=== PATIENT | female | born 1985 | race Caucasian/White ===

== ENCOUNTER 2019-09-02 10:10 | Outpatient (CLI) | payer MEDICAID, SELFPAY ==
[2019-09-02 10:36] VITALS: BMI 29.9
[2019-09-02] MEDS: Lactated Ringers 1,000 ML 125 ML IV (10:50)
[2019-09-02 10:59] VITALS: BP 104/66; PULSE 88
[2019-09-02 11:08] VITALS: TEMP 37.2
--- NOTE | 2019-09-02 11:48 | OB.TRI.NOTE ---
History of Present Illness Date of Service: 09/02/19 Was patient seen by the physician?: Yes Reason For Visit: VERSION Date of Service: 09/02/19 History of Present Illness: @ 37.4 weeks, Breech. requesting ECV trial. pt was counseled on risks of ECV including pain, placental abruption, intolerance and need for emergency C/S. pt agreed to proceed. Allergies No Known Allergies Allergy (Verified 09/02/19 11:10) Physical Exam Vitals: Vital Signs Temp Pulse BP 99.0 F 88 104/66 09/02/19 11:08 09/02/19 10:59 09/02/19 10:59 NST - FHR Rate Baby A Baseline: 135 Variability:: Moderate Accelerations:: 15 x 15 Decelerations:: None NST Reactive:: Yes FHR Category:: Category I Uterine Activity:: irregular Impression/Plan 33yo @ 37.4 wks, BREECH ECV today bedside ultrasound breech, head maternal Right
--- NOTE | 2019-09-02 11:52 | PCM.OPRPT ---
Report of Operation Date of Procedure: 09/02/19 Pre-Operative Diagnosis: term gestation, breech Post-Operative Diagnosis: same Surgery/Procedure Performed:: ECV Description of Surgical Findings:: Bedside ultrasound performed head maternal right JEFFREY appears within normal limits. At this time a forward flip was performed and we were able to successfully rotate the baby to a vertex position. heart tones were checked and initially at 80 bpm patient was positioned on the left lateral side and then to hands and knees with recovery into the 120s to 130s. We will keep her on the heart rate monitor for at least 1 hour to ensure reactive NST. Patient was counseled on the signs and symptoms of placental abruption, labor. She is to return if any vaginal bleeding, abdominal pain, painful regular contractions, leaking fluid decreased movement. Patient verbalized understanding automotive quality manager: Meghan Steward Description of Procedure: Bedside ultrasound performed head maternal right JEFFREY appears within normal limits. At this time a forward flip was performed and we were able to successfully rotate the baby to a vertex position. heart tones were checked and initially at 80 bpm patient was positioned on the left lateral side and then to hands and knees with recovery into the 120s to 130s. We will keep her on the heart rate monitor for at least 1 hour to ensure reactive NST. Patient was counseled on the signs and symptoms of placental abruption, labor. She is to return if any vaginal bleeding, abdominal pain, painful regular contractions, leaking fluid decreased movement. Patient verbalized understanding
[2019-09-02 12:15] LABS: Absolute Lymphocyte Count 1.63 X10^3/uL (0.83-4.51); Absolute Neutrophil Count 4.8 X10^3/uL (2.0-7.7); Basophil# 0.03 X10^3/uL; Basophil% 0.4 % (0-1); Eosinophil# 0.03 X10^3/uL; Eosinophils% 0.4 % (0-5); Hematocrit 36.3 % (37-47); Hemoglobin 12.1 g/dL (12.0-15.0); Lymphocyte # 1.63 X10^3/ul (4.0); Lymphocyte % 22.4 % (19-41); Mean Corp Hgb Conc 33.3 g/dL (32-36); Mean Corpuscular Hgb 30.3 pg (27.0-32.0); Mean Corpuscular Volume 90.8 fL (81-99); Mean Platelet Vol. 12.1 fl (6.2-12.0); Monocyte# 0.73 X10^3/uL; NRBC Flagged by Analyzer 0 % (0-5); Neutrophil # 4.82 X10^3/uL (2.7-7.7); Neutrophil % 66.3 % (47-70); Platelet Count 141 K/mm3 (150-450); RBC Distribution Width CV 13.3 % (11.6-14.6); RBC Distribution Width SD 44.1 fl (35.1-43.9); White Blood Count 7.3 K/mm3 (4.4-11.0)
== END 2019-09-02 12:45 | disposition home or self-care (01) ==
LOC: WPOUT 10:11 → WP 10:11
PROVIDERS: Referring Provider Obstetrics & Gynecology; Visit Provider Obstetrics & Gynecology
DX: O32.1XX0 Maternal care for breech presentation, not applicable or unspecified (principal); Z3A.37 37 weeks gestation of pregnancy
CPT/HCPCS: 96360; 96361; 36415; 59025; 59050; 59412; 76815; 85025; 86850; 86900; 86901; 99218; J7120; G0378

== ENCOUNTER 2019-09-16 06:45 | Inpatient (IN) | payer MEDICAID, SELFPAY ==
[2019-09-16] VITALS (20 sets, daily range): BP systolic 107–133; BP diastolic 58–84; PULSE 75–92; RESP 14–16; TEMP 36.7–37.4; BMI 30.2
[2019-09-16] MEDS: Lactated Ringers 1,000 ML 50 ML IV (07:00)
[2019-09-16 07:13] LABS: Basophil# 0.02 X10^3/uL; Basophil% 0.2 % (0-1); Eosinophil# 0.02 X10^3/uL; Eosinophils% 0.2 % (0-5); Hematocrit 40.8 % (37-47); Hemoglobin 13.6 g/dL (12.0-15.0); Lymphocyte % 18.5 % (19-41); Mean Corp Hgb Conc 33.3 g/dL (32-36); Mean Corpuscular Hgb 30.6 pg (27.0-32.0); Mean Corpuscular Volume 91.7 fL (81-99); Mean Platelet Vol. 12.3 fl (6.2-12.0); Monocyte# 0.81 X10^3/uL; Monocyte% 8.3 % (0-10); NRBC Flagged by Analyzer 0 % (0-5); Neutrophil # 7.02 X10^3/uL (2.7-7.7); Neutrophil % 72.3 % (47-70); Platelet Count 136 K/mm3 (150-450); RBC Distribution Width CV 13.1 % (11.6-14.6); RBC Distribution Width SD 43.8 fl (35.1-43.9); Red Blood Count 4.45 M/mm3 (4.2-5.4); White Blood Count 9.7 K/mm3 (4.4-11.0)
--- NOTE | 2019-09-16 07:16 | HP.PCM_ITS ---
- Problem List (1) Active labor at term Status: Acute (2) History of spontaneous Status: Acute (3) Rh negative state in antepartum period Status: Acute History Date of Admission: 09/16/19 Final VENICE: 09/19/19 Final VENICE Source: LMP Gestational age: 39 Weeks and 4 Days History of this : This is a 33 year-old, G [5], P [2021], at 39 weeks 4 days gestational age by dating US in first trimester. Presented to labor and delivery in active labor with contractions every 2-3 minutes that were on and off since yesterday and became more regular around 3 am this morning. Denies vaginal bleeding, leakage of fluid. Good movement. present upon arrival. complicated by breech presentation at 37 weeks with successful ECV, history of spontaneous , and Influenza B positive during . Denies any SOB, nausea, vomiting, cough or recent travel outside the [facility]. No contacts with any positive COVID 19 persons. Allergies No Known Allergies Allergy (Verified 09/16/19 06:55) Home Medications: Home Medications Ascorbic Acid [Vitamin C] 1 tab PO DAILY 09/02/19 Cholecalciferol (VIT D3) [Vitamin D] 1,000 unit PO DAILY 09/02/19 Lactobacillus Acidophilus [Acidophilus Lactobacilli] 1 cap PO DAILY 09/02/19 [place]-3 Fatty Acids/Fish Oil [Fish Oil 1,000 mg Capsule] 1 ea PO DAILY 09/02/19 Vits [Prenatabs FA ] 1 tab PO DAILY 09/02/19 Smoking Status: Never smoker Alcohol: None Number of Fetus(es): 1 NST - FHR Rate Baby A Baseline: 125 Variability:: Moderate Accelerations:: 15 x 15 Decelerations:: None NST Reactive:: Yes FHR Category:: Category I Uterine Activity:: Every 2-3 min strong History Past Pregnancies: Past Pregnancies Delivery Date Name GA/ Weeks Outcome Route Wt Sex Labor Length Anesthesia Delivery Location Provider FOB Labs: Mom's Problem List Problem Status Onset Code Active labor at term Acute History of spontaneous Acute Z87.59 Rh negative state in antepartum period Acute O26.899, Z67.91 Mom's Labs & Results 09/16/19 09/16/19 06:50 06:50 WBC 9.7 RBC 4.45 Hgb 13.6 Hct 40.8 MCV 91.7 MCH 30.6 MCHC 33.3 RDW Std Deviation 43.8 RDW Coeff of Bret 13.1 Plt Count 136 L MPV 12.3 H Immature Gran % (Auto) 0.500 Neut % (Auto) 72.3 H Lymph % (Auto) 18.5 L Hinds % (Auto) 8.3 Eos % (Auto) 0.2 Baso % (Auto) 0.2 Absolute Neuts (auto) 7.0 Absolute Lymphs (auto) 1.80 Nucleated RBC % 0 Blood Type Pending Antibody Screen Pending HIV negative HBsAG negative RPR negative Rubella Immune O negative, A negative and card on file, decline rhogam administration GBS positive 1hr GCT normal GC/CT negative Expected Infant Delivery Method: Spontaneous Vaginal Review of Systems Constitutional: Denies: Chills, Fever, Weight Change Eyes: Denies: Blurred vision HEENT: Denies: Head Aches, Sinus Congestion, Sinus Drainage Cardiovascular: Denies: Chest Pain, Palpitations Respiratory: Denies: Cough, Shortness of breath at rest, Sputum production Gastrointestinal: Denies: Abdominal Pain, Nausea, Vomiting Genitourinary: Denies: Dysuria Neurological: Denies: Numbness, Tingling, Focal weakness Psychiatric: Denies: Anxiety, Depression, Homicidal Ideations, Suicidal Ideations Physical Exam General: Alert, Oriented x3 HEENT: Atraumatic, Normocephalic Abdomen: Gravid Extremities:: No edema 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 Patient tolerated. Station: -1 Effacement (%): 90 Assessment/Plan All Active Problems Active labor at term (Acute) History of spontaneous (Acute) Rh negative state in antepartum period (Acute) This is a 33 year-old, G [5], P [2021], at 39 weeks 4 days gestational age. Active Labor at Term GBS positive Category 1 FHT P: 1) Admit to labor and delivery. IV saline lock. EFM. Routine labs 2) Planning unmedicated , may have pain management upon request. Continuous bedside support offered. 3) PCN prophylaxis for GBS positive 4) Declines LARC, form signed in chart 5) Anticipate vaginal delivery soon 6) Collaborative physician and notified of patient in labor.
--- NOTE | 2019-09-16 08:18 | OP.PCM_ITS ---
Problem List (1) Active labor at term Status: Acute (2) History of spontaneous Status: Acute (3) Rh negative state in antepartum period Status: Acute (4) Vaginal delivery Status: Acute (5) Positive GBS test Status: Acute Vaginal Delivery Maternal Presentation: Active Labor Amniotic Membrane Rupture Type: Artificial - Moderate amount of clear fluid Amniotic Fluid Description: Clear Final VENICE: 09/19/19 Final VENICE Source: US <20 weeks Gestational age: 39 Weeks and 4 Days Date of Procedure: 09/16/19 Pre-Operative Diagnosis: Active Labor Post-Operative Diagnosis: Surgery/ Procedure Performed: Spontaneous Vaginal Delivery Type of Anesthesia: None Description of Procedure: Progressed to complete with urge to push on hands and knees. Infant head delivered and patients pushing efforts decreased. After 30 seconds, turned supine and with good pushing effort body delivered. CANx1 delivered through. placed on maternal abdomen, strong cry. APGARS 8,9. Mouth and nares suctioned for secretions. Patient declined pitocin for active 3rd stage management after reviewing risks and benefits of administration, requested expectant management. After 5 minutes and pulsations ceased per patient request, cord clamped and cut by FOB. Placenta delivered intact, 3 vessel cord with maternal effort. Fundus firm. Perineum inspected and intact without laceration. Vaginal sweep and sponge and instrument count correct completed by me. Hemo stasis achieved. initiated. Family bonding well. Mom and baby stable. notified of delivery. Presentation: Vertex Placental Delivery Description: Spontaneous Placenta Disposition: [facility] Cord Vessel Description: 3 Vessels Cord Entanglement: Around neck x 1, loose Estimated Blood Loss: 200 ml Infant A gender: Male (1 minute): 8 (5 minute): 9 Episiotomy Description: None Laceration: None Complications: None
[2019-09-16] MEDS: Ibuprofen 600 MG Tablet PO (18:50)
[2019-09-17] VITALS (7 sets, daily range): BP systolic 103–122; BP diastolic 58–75; PULSE 64–88; RESP 16–18; TEMP 36.7–37.1; O2SAT 96–97
--- NOTE | 2019-09-17 18:14 | PCM.PN.OB ---
Patient Problems: Active and Suspected Problems Active labor at term (Acute) History of spontaneous (Acute) Rh negative state in antepartum period (Acute) Vaginal delivery (Acute) Positive GBS test (Acute) Subjective: No complaints - Physical Exam Vitals/I&O's: Vital Signs Temp Pulse Resp BP Pulse Ox 98.8 F 85 16 103/58 L 97 09/17/19 14:20 09/17/19 14:20 09/17/19 14:20 09/17/19 14:20 09/17/19 14:20 Oxygen Delivery Method Room Air Weight: 187 lb Body Mass Index (BMI) 30.2 Intake and Output for Last 24 Hours 09/15/19 09/16/19 09/17/19 23:59 23:59 23:59 Intake Total 259.17 / 259.17 Output Total 450 / 450 Balance -190.83 / -190.83 General: Alert, Oriented x3 Abdomen: Soft, Non Tender, Non-Distended - ff mid & below umb Extremities: No Calf Tenderness Current Medications Acetaminophen (Tylenol) 1,000 mg PO Q8H PRN PRN PRN Reason: Pain Score 1-3/10 Bisacodyl (Dulcolax) 10 mg RECTAL UD PRN PRN Reason: If no BM Dibucaine (Dibucaine) 1 applic TOPICAL TID PRN PRN; Protocol PRN Reason: Discomfort Hydrocortisone (Hytone) 1 applic TOPICAL TID PRN PRN; Protocol PRN Reason: Discomfort Ibuprofen (Motrin) 600 mg PO Q6H PRN PRN PRN Reason: Pain Score 1-3/10 Last Admin: 09/16/19 18:50 Dose: 600 mg Documented by: Methylergonovine Maleate (Methergine) 0.2 mg IM X1 PRN PRN Reason: Excess bleeding/uterine atony Ondansetron HCl (Zofran) 4 mg IV Q4H PRN PRN PRN Reason: Nausea Senna/Docusate Sodium (Senokot-S, [place]-Colace) 1 - 2 tablet PO DAILY PRN PRN PRN Reason: Constipation Simethicone (Mylicon) 80 mg PO PCHS PRN PRN Reason: Indigestion/Stomach pain Sodium Chloride () 5 - 15 ml IV UD PRN PRN Reason: SALINE FLUSH Medical Necessity - Tobacco Use Smoking Status: Never smoker Assessment/Plan All Active Problems Active labor at term (Acute) History of spontaneous (Acute) Rh negative state in antepartum period (Acute) Vaginal delivery (Acute) Positive GBS test (Acute) PPD#1 D/c home tonight per patient request
--- NOTE | 2019-09-17 18:15 | DCINST_ITS ---
Discharge Diet: No Restrictions Discharge Activity: May Drive, May Shower May resume sexual activity in: 6 weeks Additional Instructions: If you experience any of the following, contact your healthcare provider. * Bleeding that soaks a pad every hour for 2 hours * Fever 100.4 or higher * Unrelieved incision or abdominal pain * Swelling, redness, discharge or bleeding from your incision or episiotomy site * Your incision begins to separate * Problems urinating (including inability to urinate or burning while urinating). * Visual changes * Severe headache * Flu-like symptoms * Pain or redness in one of both of your breasts * Pain, warmth, tenderness or swelling in your legs, especially the calf area * Frequent nausea and vomiting * Symptoms of depression or anxiety If you experience any of the following, call 911 or go to the nearest Emergency Room. * Chest pain * Problems breathing * Seizure activity * Partial or complete paralysis of a body part, slurred speech, weakness or drooping of the face, or a sudden inability to walk or hold your balance Allergies/Adverse Reactions: Allergies No Known Allergies Allergy (Verified 09/16/19 06:55) Medications to take at Discharge Ascorbic Acid [Vitamin C] 1 tab PO DAILY 09/02/19 Cholecalciferol (VIT D3) [Vitamin D3] 1,000 unit PO DAILY 09/02/19 Lactobacillus Acidophilus [Acidophilus Lactobacilli] 1 cap PO DAILY 09/02/19 [place]-3 Fatty Acids/Fish Oil [Fish Oil 1,000 mg Capsule] 1 ea PO DAILY 09/02/19 Vits [Prenatabs FA ] 1 tab PO DAILY 09/02/19 Acetaminophen [Tylenol] 1,000 mg PO Q8H PRN PRN tablet 09/17/19 Ibuprofen [Motrin] 600 mg PO Q6H PRN PRN tablet 09/17/19 Primary Care Physician: Care Physician,No Primary [Primary Care Provider] - Test Results: Test results from this visit will be discussed in further detail at your follow- up appointment, if applicable.
--- NOTE | 2019-09-17 18:15 | PCM.DCVAG ---
Discharge Diet: No Restrictions Discharge Activity: May Drive, May Shower May resume sexual activity in: 6 weeks Additional Instructions: If you experience any of the following, contact your healthcare provider. Bleeding that soaks a pad every hour for 2 hours Fever 100.4 or higher Unrelieved incision or abdominal pain Swelling, redness, discharge or bleeding from your incision or episiotomy site Your incision begins to separate Problems urinating (including inability to urinate or burning while urinating). Visual changes Severe headache Flu-like symptoms Pain or redness in one of both of your breasts Pain, warmth, tenderness or swelling in your legs, especially the calf area Frequent nausea and vomiting Symptoms of depression or anxiety If you experience any of the following, call 911 or go to the nearest Emergency Room. Chest pain Problems breathing Seizure activity Partial or complete paralysis of a body part, slurred speech, weakness or drooping of the face, or a sudden inability to walk or hold your balance Allergies/Adverse Reactions: Allergies No Known Allergies Allergy (Verified 09/16/19 06:55) Medications to take at Discharge Ascorbic Acid [Vitamin C] 1 tab PO DAILY 09/02/19 Cholecalciferol (VIT D3) [Vitamin D3] 1,000 unit PO DAILY 09/02/19 Lactobacillus Acidophilus [Acidophilus Lactobacilli] 1 cap PO DAILY 09/02/19 [place]-3 Fatty Acids/Fish Oil [Fish Oil 1,000 mg Capsule] 1 ea PO DAILY 09/02/19 Vits [Prenatabs FA ] 1 tab PO DAILY 09/02/19 Acetaminophen [Tylenol] 1,000 mg PO Q8H PRN PRN tablet 09/17/19 Ibuprofen [Motrin] 600 mg PO Q6H PRN PRN tablet 09/17/19 Primary Care Physician: Care Physician,No Primary [Primary Care Provider] - Test Results: Test results from this visit will be discussed in further detail at your follow-up appointment, if applicable.
== END 2019-09-17 20:15 | disposition home or self-care (01) | DRG 807 ==
PROVIDERS: Obstetrics & Gynecology; Admitting Provider Advanced Practice Midwife; Referring Provider Advanced Practice Midwife; Visit Provider Advanced Practice Midwife
DX: O69.81X0 Labor and delivery complicated by cord around neck, without compression, not applicable or unspecified (principal); Z37.0 Single live birth; Z3A.39 39 weeks gestation of pregnancy; O99.824 Streptococcus B carrier state complicating childbirth
CPT/HCPCS: 59050; 85025; 86850; 86900; 86901; 99218; J7120; G0378

== ENCOUNTER 2024-04-06 06:37 | Outpatient (CLI) | payer MEDICAID, SELFPAY ==
[2024-04-06 07:01] VITALS: BMI 30.9
[2024-04-06 07:02] VITALS: BP 109/66; PULSE 97; RESP 16; TEMP 36.7; O2SAT 98
--- NOTE | 2024-04-06 07:35 | OB.TRI.NOTE ---
HPI - General General Date of Admission: 04/06/24 Date of Service: 04/06/24 Chief Complaint: ECV HPI Narrative JANET COUGHLIN, is a 38 F who presents for ECV for breech. Found to vertex on US. CAT 1 tracing. Maternal Data Information Final VENICE: 04/28/24 Gestational age: 36+6 PFSH PFSH Home Medications ?Medication ?Instructions ?Recorded ?Last Taken ?Type Lactobacillus acidophilus 500 1 cap PO DAILY Check with primary 09/02/19 09/15/19 08:00 History million cell capsule doctor ascorbic acid (vitamin C) 1,000 mg 1 tab PO DAILY Check with primary 09/02/19 09/15/19 08:00 History tablet doctor cholecalciferol (vitamin D3) 25 1,000 unit PO DAILY 09/02/19 09/15/19 08:00 History mcg (1,000 unit) tablet omega-3 fatty acids-fish oil 340 1 ea PO DAILY 09/02/19 09/15/19 08:00 History mg-1,000 mg capsule vits,calcium no.78-iron 1 tab PO DAILY 09/02/19 09/15/19 08:00 History fumarate-folic acid 29 mg-1 mg tablet acetaminophen 500 mg tablet 1,000 mg (2 x 500 mg) PO Q8H PRN 09/17/19 Unknown Rx PRN Pain Score 1-3/10 ibuprofen 600 mg tablet 600 mg PO Q6H PRN PRN Pain Score 09/17/19 Unknown Rx 1-3/10 aspirin 81 mg tablet,delayed 81 mg PO DAILY 04/06/24 Unknown History release Allergy/AdvReac Type Severity Reaction Status Date / Time No Known Allergies Allergy Verified 04/06/24 07:07 Social History Smoking Status: Never smoker History Elective abortions Hx Para 2 Spontaneous abortions Hx # Term Pregnancies Ectopic pregnancies Hx # Pregnancies Multiple births # of living children Physical Exam Const alert and no apparent distress General Appearance: cooperative HEENT normocephalic Resp normal respiratory effort GI soft to palpation GI Narrative: gravid, nontender, appropriate for gestational age Skin no wounds Rashes: No rashes noted Psych activity/motor behavior normal NST FHR Rate Baby A Baseline: 145 Variability:: Moderate Accelerations:: 15 x 15 Decelerations:: None NST Reactive:: Yes FHR Category:: Category I Uterine Activity:: occasional Assessment & Plan (1) Vertex presentation of fetus: QUALIFIERS: Trimester: third trimester Qualified Code(s): Z34.93 - Encounter for supervision of normal , unspecified, third trimester (2) 36 weeks gestation of : PLAN: Plan Discharge home
== END 2024-04-06 07:45 | disposition home or self-care (01) ==
PROVIDERS: Anesthesiology; Referring Provider Obstetrics & Gynecology; Visit Provider Obstetrics & Gynecology
DX: O32.1XX0 Maternal care for breech presentation, not applicable or unspecified (principal); Z3A.36 36 weeks gestation of pregnancy
CPT/HCPCS: 59025; 59050; 76815; 99221; G0378

== ENCOUNTER 2024-05-01 15:07 | Inpatient (IN) | payer MEDICAID, SELFPAY ==
--- NOTE | 2024-04-30 18:47 | FALS_PTH ---
PATIENT: JANET COUGHLIN LOC: [facility] U#:[id number] AGE/SX: 38/F ROOM: WP005 RE05/01/[address]: Dr. Jhoana Gonzalez MD : 1985 BED: 1 DIS: 05/03/2024 SPEC #: [id number] RECD: 05/04/24 09:32 STATUS: [place] FENGCassie #: [id number] DINA: 04/30/24 18:[address]: Jhoana Gonzalez DEPT: SURGICAL PATHOLOGY RECD BY: Ami Merchant ENTERED: 05/04/24 09:33 SP TYPE: FALL TUBES OTHR DR: No Primary Care Phys Tissues: Fallopian tube Procedures: Surgery Specimen Level II HEADER OPERATION: Tubal ligation PRE-OP DIAGNOSIS: Tubal sterilization TISSUE SUBMITTED: Bilateral fallopian tubes MICROSCOPIC DIAGNOSIS Bilateral fallopian tubes, salpingectomy: Bilateral fallopian tubes, no pathologic diagnosis. SAQIB: 05/05/2024 MICROSCOPIC DESCRIPTION Slides are reviewed. GROSS DESCRIPTION Received in fixative is one container labeled with the patient's name and designated bilateral fallopian tubes. The specimen consists of bilateral fallopian tubes including fimbrial ends measuring 7.5 cm in length and 0.7 cm in diameter and 6.5cm in length and 0.8cm in diameter. The fallopian tubes are not identified as right or left. Sections reveal unremarkable cut surfaces. Expeditionary Fighting Vehicle Crewman sections are submitted in two cassettes with each cassette containing one fallopian tube. / SAQIB: 05/04/2024 TC:4 CPT: 64477 x2
[2024-05-01] VITALS (18 sets, daily range): BP systolic 90–124; BP diastolic 58–82; PULSE 66–93; RESP 12–18; TEMP 36.3–37.1; O2SAT 96–100; BMI 30.8
[2024-05-01] MEDS: Lactated Ringers 1,000 ML 200 ML IV (14:59)
[2024-05-01 15:10] LABS: Absolute Neutrophil Count 7.1 X10^3/uL (2.0-7.7); Basophil# 0.02 X10^3/uL; Basophil% 0.2 % (0-1); Eosinophil# 0.04 X10^3/uL; Eosinophils% 0.4 % (0-5); Hematocrit 35.2 % (37-47); Hemoglobin 12.2 g/dL (12.0-15.0); Lymphocyte % 19.9 % (19-41); Mean Corp Hgb Conc 34.7 g/dL (32-36); Mean Corpuscular Hgb 31.4 pg (27.0-32.0); Mean Corpuscular Volume 90.7 fL (81-99); Mean Platelet Vol. 11.3 fl (6.2-12.0); Monocyte# 0.88 X10^3/uL; Monocyte% 8.8 % (0-10); NRBC Flagged by Analyzer 0 % (0-5); Neutrophil # 7.05 X10^3/uL (2.7-7.7); Neutrophil % 70.1 % (47-70); Platelet Count 155 K/mm3 (150-450); RBC Distribution Width CV 13.1 % (11.6-14.6); RBC Distribution Width SD 42.7 fl (35.1-43.9); Red Blood Count 3.88 M/mm3 (4.2-5.4); White Blood Count 10.1 K/mm3 (4.4-11.0)
--- NOTE | 2024-05-01 15:12 | PCM.PN.BLA ---
Progress Note Asked by nurse and provider workers compensation administrator to check patient and assess presentation. Patient offers no complaints. Nurse felt baby was in face presentation. Assessment & Plan Assessment/Plan (1) Face presentation of fetus: PLAN: Cvx /-2, face presentation noted with chin posterior. Bedside TAUS performed: face presentation with mentum posterior. Recommended a section. Discussed r/b/a section and patient desires to proceed. Pre op antibiotics ordered. Update given to provider workers compensation administrator Dr. Gonzalez. (2) SROM (spontaneous rupture of membranes):
[2024-05-01 15:50] LABS: Syphilis Antibodies Non-reactive
--- NOTE | 2024-05-01 17:30 | PCM.HP.OB ---
HPI - General General Date of Admission: 05/01/24 Date of Service: 05/01/24 Chief Complaint: SROM HPI Narrative JANET COUGHLIN, is a 38 F who presents SROM this am. Some contractions. 4 cm and face presentation mentum posterior. Patient consented for primary section. Desires tubal also. Title 19 available. Maternal Data Information Final VENICE: 04/28/24 Gestational age: 40+3 PFSH PFSH Medical History no medical history Home Medications ?Medication ?Instructions ?Recorded ?Last Taken ?Type ascorbic acid (vitamin C) 1,000 mg 1 tab PO DAILY Check with primary 09/02/19 09/15/19 08:00 History tablet doctor cholecalciferol (vitamin D3) 25 1,000 unit PO DAILY 09/02/19 09/15/19 08:00 History mcg (1,000 unit) tablet omega-3 fatty acids-fish oil 340 1 ea PO DAILY 09/02/19 05/01/24 History mg-1,000 mg capsule vits,calcium no.78-iron 1 tab PO DAILY 09/02/19 05/01/24 History fumarate-folic acid 29 mg-1 mg tablet acetaminophen 500 mg tablet 1,000 mg (2 x 500 mg) PO Q8H PRN 09/17/19 05/01/24 12:30 Rx PRN Pain Score 1-3/10 ibuprofen 600 mg tablet 600 mg PO Q6H PRN PRN Pain Score 09/17/19 Unknown Rx 1-3/10 aspirin 81 mg tablet,delayed 81 mg PO DAILY 04/06/24 05/01/24 History release Allergy/AdvReac Type Severity Reaction Status Date / Time No Known Allergies Allergy Verified 05/01/24 14:01 Family History no significant family his Surgical History no surgical history Social History Smoking Status: Never smoker History 5 Elective abortions Hx Para 3 Spontaneous abortions Hx # Term Pregnancies Ectopic pregnancies Hx # Pregnancies Multiple births # of living children NST FHR Rate Baby A Baseline: 140 Variability:: Moderate Accelerations:: 15 x 15 Decelerations:: None NST Reactive:: Yes FHR Category:: Category I Uterine Activity:: irregular ROS Constitutional Constitutional: Denies fatigue, fever(s) or malaise Eyes Eyes: Denies change in vision ENT HEENT: Denies dizziness or headache(s) Cardiovascular Cardiovascular: Denies chest pain, dyspnea or lightheadedness Respiratory/Chest Respiratory/Chest: Denies cough or dyspnea Gastrointestinal Gastrointestinal: Denies change in bowel habits Genitourinary Genitourinary: Denies burning urination or genital lesions Integumentary Integumentary: Denies rash Neurologic Neurologic: Denies confusion, dizziness, headache(s), numbness or weakness Vital Signs Vital Signs Vital Signs: 05/01/24 13:56 05/01/24 13:56 05/01/24 13:56 Temperature Temperature Source Temporal Pulse Rate 77 Respiratory Rate Blood Pressure Blood Pressure Mean BP Systolic BP Diastolic Blood Pressure Source Blood Pressure Position Blood Pressure Location Pulse Ox 100 Oxygen Delivery Method 05/01/24 13:56 05/01/24 13:56 05/01/24 13:57 Temperature 98.6 F Temperature Source Pulse Rate Respiratory Rate 16 Blood Pressure 104/63 Blood Pressure Mean BP Systolic 104 BP Diastolic 63 Blood Pressure Source Blood Pressure Position Blood Pressure Location Pulse Ox Oxygen Delivery Method 05/01/24 13:57 05/01/24 14:01 05/01/24 14:01 Temperature Temperature Source Pulse Rate 93 86 Respiratory Rate Blood Pressure Blood Pressure Mean BP Systolic BP Diastolic Blood Pressure Source Blood Pressure Position Blood Pressure Location Pulse Ox 100 Oxygen Delivery Method 05/01/24 15:59 05/01/24 16:00 05/01/24 16:00 Temperature 98.3 F Temperature Source Axillary Pulse Rate 80 79 Respiratory Rate 16 Blood Pressure 124/69 H 124/69 H Blood Pressure Mean 87 BP Systolic 124 BP Diastolic 69 Blood Pressure Source Monitor Blood Pressure Position Semi-Fowlers Blood Pressure Location Left Arm Pulse Ox 97 Oxygen Delivery Method Room Air 05/01/24 16:00 05/01/24 16:00 05/01/24 17:29 Temperature Temperature Source Pulse Rate 82 Respiratory Rate Blood Pressure 122/82 H Blood Pressure Mean BP Systolic 122 BP Diastolic 82 Blood Pressure Source Blood Pressure Position Blood Pressure Location Pulse Ox 97 Oxygen Delivery Method 05/01/24 17:29 Temperature Temperature Source Pulse Rate 82 Respiratory Rate Blood Pressure Blood Pressure Mean BP Systolic BP Diastolic Blood Pressure Source Blood Pressure Position Blood Pressure Location Pulse Ox Oxygen Delivery Method Weight Weight: 86.636 kg Body Mass Index (BMI) 30.8 Physical Exam Const alert and no apparent distress General Appearance: cooperative HEENT normocephalic Resp normal respiratory effort Cardio regular rate GI soft to palpation GI Narrative: gravid, nontender, appropriate for gestational age Extremity no calf tenderness General Extremity: edema Skin no wounds Rashes: No rashes noted Psych activity/motor behavior normal Labs Labs Labs: Blood Type O NEGATIVE Antibody Screen NEGATIVE Hct 35.2 % (37-47) L Hgb 12.2 g/dL (12.0-15.0) Syphilis Total Ab Non-reactive Rhogam given: No Assessment & Plan (1) SROM (spontaneous rupture of membranes): (2) Face presentation of fetus: QUALIFIERS: Fetus number: single or unspecified fetus Qualified Code(s): O32.3XX0 - Maternal care for face, brow and chin presentation, not applicable or unspecified PLAN: Plan Primary
[2024-05-01] MEDS: Acetaminophen 500 MG Tablet 1000 MG PO ×2 (17:36→23:48)
[2024-05-01] MEDS: Lactated Ringers 1,000 ML 999 ML IV (17:37)
[2024-05-01] MEDS: Sodium Citrate/Citric Acid 30 ML UDC PO (18:01)
[2024-05-01] MEDS: Cefazolin 2 GM in Syringe IV (18:14)
[2024-05-01] MEDS: Azithromycin 500 MG in 0.9% Normal Saline (250mL Bag) 250 ML 250 MG IV (19:14)
--- NOTE | 2024-05-01 19:29 | EX.PCM.OBRPT ---
Assessment & Plan (1) SROM (spontaneous rupture of membranes): (2) Face presentation of fetus: QUALIFIERS: Fetus number: single or unspecified fetus Qualified Code(s): O32.3XX0 - Maternal care for face, brow and chin presentation, not applicable or unspecified (3) 40 weeks gestation of : Maternal Data Information Final VENICE: 04/28/24 Gestational age: 40+3 Operative Report (OB) Cecarean Details Procedure Type: low transverse Date of Procedure: 05/01/24 Procedure Start Time: 18:39 Procedure Stop Time: 19:27 Time of Delivery: 18:47 Pre-Operative Diagnosis: Desires elective sterilization and Malpresentation (face presentation mentum posterior) Post-Operative Diagnosis: Same as Pre-operative diagnosis Classification: ESTELA Type of Anesthesia: Spinal Antibiotic Given: Ancef 2 grams IV x1 and Zithromax 500 mg/5 mL X1 Drain: Juares to straight drain Estimated Blood Loss: 500 cc Findings Description of surgery: Patient taken to the OR where spinal anesthesia was placed. She was placed in a dorsal supine position with a leftward tilt. A Juares was placed in the bladder. Vaginal prep was avoided given face presentation. She was prepped and draped in the normal sterile fashion. A Pfannenstiel incision was made and carried down to the underlying fascia. PDS from previous laparotomy was removed. The fascia was incised in the midline and extended laterally. The fascia was dissected from the muscle. The muscles divided in the midline. The peritoneum was entered bluntly and extended manually. A bladder blade was placed. A bladder flap was created. A low transverse incision was made and extended bluntly. The head was elevated to the incision but was unable to flexed to assist in delivery through the incision. A kiwi was used to assist in the delivery of the head. The shoulders delivered easily. The infant cried upon delivery. The cord was cut and clamped. The placenta was delivered with jagruti traction. The uterus was exteriorized and cleared of all clot and debris. The incision was repaired with 1-0 Vicryl x 2. The tubes and ovaries were in cased in several filmy adhesions. Was the tubes were freed, a LigaSure was used for bilateral salpingectomy. The uterus was returned the abdomen, The gutter cleared of all clots. The peritoneum was closed with 2-0 Monocryl. The fascia was closed with 1-0 Vicryl. The subcutaneous tissue was reapproximated with 2-0 Monocryl The skin was closed with 4-0. I performed the major parts of the procedure with the RFNA assisting with retraction and closing the skin. The sponge lap and needle count was correct x 2 Surgical findings: Face presentation. Adhesions of adnexa. Presentation: Vertex (face presentation mentum posterior) Amniotic Membrane Rupture Type: Spontaneous Amniotic Fluid Description: Clear Placental Delivery Description: Expressed Placenta Disposition: [facility] Specimen collected: Yes Description of specimen(s) removed: fallopian tubes Cord Vessel Description: 3 Vessels Cord Entanglement: None Infant A gender: Male (1 minute): 8 (5 minute): 9 Delayed Cord Clamping: Yes [facility] field service specialist: Yes Adult Secondary Education Instructor: Ina Ramirez Tasks completed by drug safety assistant: Opening & closing and Retracting Complications Complications: No
[2024-05-01] MEDS: Oxytocin 15 Units/NS 250ml 15 UNITS/250 ML IV.SOLN 83 UNITS IV (19:55)
[2024-05-01] MEDS: Ketorolac 30 MG/ML Syringe IV (21:04)
[2024-05-02] VITALS (7 sets, daily range): BP systolic 90–105; BP diastolic 57–74; PULSE 72–88; RESP 16; TEMP 36.2–36.4; O2SAT 95–99
[2024-05-02] MEDS: Ketorolac 30 MG/ML Syringe IV ×3 (03:48→16:15)
[2024-05-02] MEDS: 0.9% Saline Lock 10 ML Syringe IV ×3 (03:48→16:15)
[2024-05-02] MEDS: Lactated Ringers 1,000 ML 100 ML IV (04:00)
[2024-05-02] MEDS: Acetaminophen 500 MG Tablet 1000 MG PO ×3 (06:07→18:15)
[2024-05-02 06:23] LABS: Hematocrit 30.9 % (37-47); Hemoglobin 10.6 g/dL (12.0-15.0); Mean Corp Hgb Conc 34.3 g/dL (32-36); Mean Corpuscular Hgb 31.5 pg (27.0-32.0); Mean Corpuscular Volume 91.7 fL (81-99); Mean Platelet Vol. 11.6 fl (6.2-12.0); Platelet Count 135 K/mm3 (150-450); RBC Distribution Width CV 13.2 % (11.6-14.6); RBC Distribution Width SD 43.8 fl (35.1-43.9); Red Blood Count 3.37 M/mm3 (4.2-5.4); White Blood Count 11.6 K/mm3 (4.4-11.0)
--- NOTE | 2024-05-02 11:42 | PN.OBGYN_ITS ---
Subjective Subjective Doing well. Ambulating and voiding without difficulty. Mild lochia. Breast feeding. Objective Data Objective Data Vital Signs: Vital Signs Temp Pulse Resp BP Pulse Ox O2 Del Method 97.6 F L 79 16 96/60 99 Room Air 05/02/24 08:41 05/02/24 08:41 05/02/24 08:41 05/02/24 08:41 05/02/24 08:41 05/02/24 08:41 Oxygen Delivery Method Room Air Weight: 86.636 kg Body Mass Index (BMI) 30.8 Intake & Output: Intake and Output for Last 24 Hours 04/30/24 05/01/24 05/02/24 23:59 23:59 23:59 Intake Total 2525 / 2525 Output Total 800 / 800 700 / 700 Balance 1725 / 1725 -700 / -700 Lab / Micro Data 05/02/24 06:10 Labs: Laboratory Results - last 24 hr 05/01/24 14:45: WBC 10.1, RBC 3.88 L, Hgb 12.2, Hct 35.2 L, MCV 90.7, MCH 31.4, MCHC 34.7, RDW Std Deviation 42.7, RDW Coeff of Bret 13.1, Plt Count 155, MPV 11.3, Immature Gran % (Auto) 0.600, Neut % (Auto) 70.1 H, Lymph % (Auto) 19.9, Woodruff % (Auto) 8.8, Eos % (Auto) 0.4, Baso % (Auto) 0.2, Absolute Neuts (auto) 7.1, Absolute Lymphs (auto) 2.00, Nucleated RBC % 0, Syphilis Total Ab Non- reactive, Blood Type O NEGATIVE, Antibody Screen NEGATIVE 05/02/24 06:10: WBC 11.6 H, RBC 3.37 L, Hgb 10.6 L, Hct 30.9 L, MCV 91.7, MCH 31.5, MCHC 34.3, RDW Std Deviation 43.8, RDW Coeff of Bret 13.2, Plt Count 135 L, MPV 11.6 ROS Constitutional Constitutional: Denies fatigue, fever(s) or malaise Eyes Eyes: Denies change in vision ENT HEENT: Denies dizziness or headache(s) Cardiovascular Cardiovascular: Denies chest pain, dyspnea or lightheadedness Respiratory/Chest Respiratory/Chest: Denies cough or dyspnea Gastrointestinal Gastrointestinal: Denies change in bowel habits Genitourinary Genitourinary: Denies burning urination or genital lesions Integumentary Integumentary: Denies rash Neurologic Neurologic: Denies confusion, dizziness, headache(s), numbness or weakness Physical Exam Const alert General Appearance: cooperative GI GI Narrative: soft, moderate distention, fundus firm, appropriately tender. Abdominal bandage clean dry and intact Assessment & Plan (1) S/P : PLAN: Plan Routine care
[2024-05-02] MEDS: SimETHICONE 80 MG Chewable Tablet PO (16:45)
[2024-05-02] MEDS: Ibuprofen 600 MG Tablet PO (22:19)
[2024-05-03] MEDS: Acetaminophen 500 MG Tablet 1000 MG PO ×2 (01:13→07:20)
[2024-05-03 01:14] VITALS: BP 96/67; PULSE 78; RESP 16; TEMP 36.2; O2SAT 99
[2024-05-03] MEDS: Ibuprofen 600 MG Tablet PO (04:29)
[2024-05-03] MEDS: SimETHICONE 80 MG Chewable Tablet PO ×2 (04:32→09:26)
--- NOTE | 2024-05-03 07:46 | PCM.PN.OB ---
Subjective Subjective Doing well. Ambulating and voiding without difficulty. Mild lochia. Breast feeding. Objective Data Objective Data Vital Signs: Vital Signs Temp Pulse Resp BP Pulse Ox O2 Del Method 97.2 F L 78 16 96/67 99 Room Air 05/03/24 01:14 05/03/24 01:14 05/03/24 01:14 05/03/24 01:14 05/03/24 01:14 05/03/24 01:14 Oxygen Delivery Method Room Air Weight: 86.636 kg Body Mass Index (BMI) 30.8 Intake & Output: Intake and Output for Last 24 Hours 05/01/24 05/02/24 05/03/24 23:59 23:59 23:59 Intake Total 2525 / 2525 200 / 200 Output Total 800 / 800 1300 / 1300 Balance 1725 / 1725 -1100 / -1100 Lab / Micro Data 05/02/24 06:10 Labs: Laboratory Results - last 24 hr 05/01/24 14:45: WBC 10.1, RBC 3.88 L, Hgb 12.2, Hct 35.2 L, MCV 90.7, MCH 31.4, MCHC 34.7, RDW Std Deviation 42.7, RDW Coeff of Bret 13.1, Plt Count 155, MPV 11.3, Immature Gran % (Auto) 0.600, Neut % (Auto) 70.1 H, Lymph % (Auto) 19.9, Jackson % (Auto) 8.8, Eos % (Auto) 0.4, Baso % (Auto) 0.2, Absolute Neuts (auto) 7.1, Absolute Lymphs (auto) 2.00, Nucleated RBC % 0, Syphilis Total Ab Non-reactive, Blood Type O NEGATIVE, Antibody Screen NEGATIVE 05/02/24 06:10: WBC 11.6 H, RBC 3.37 L, Hgb 10.6 L, Hct 30.9 L, MCV 91.7, MCH 31.5, MCHC 34.3, RDW Std Deviation 43.8, RDW Coeff of Bret 13.2, Plt Count 135 L, MPV 11.6 ROS Constitutional Constitutional: Denies fatigue, fever(s) or malaise Eyes Eyes: Denies change in vision ENT HEENT: Denies dizziness or headache(s) Cardiovascular Cardiovascular: Denies chest pain, dyspnea or lightheadedness Respiratory/Chest Respiratory/Chest: Denies cough or dyspnea Gastrointestinal Gastrointestinal: Denies change in bowel habits Genitourinary Genitourinary: Denies burning urination or genital lesions Integumentary Integumentary: Denies rash Neurologic Neurologic: Denies confusion, dizziness, headache(s), numbness or weakness Physical Exam Const alert General Appearance: cooperative GI GI Narrative: soft, moderate distention, fundus firm, appropriately tender. Abdominal bandage clean dry and intact Extremity General Extremity: edema bilateral Assessment & Plan (1) S/P : PLAN: Plan Discharge home
--- NOTE | 2024-05-03 07:50 | DS.PCM_ITS ---
Providers Date of Admission: 05/01/24 Date of Discharge: 05/03/24 Primary Care Physician: No Primary Care Phys Reason For Visit: C SECTION Diagnosis Discharge Diagnosis (1) S/P : Status: Acute Code(s): Z98.891 - History of uterine scar from previous surgery Plan Discharge home Medications at Discharge Home Medications ascorbic acid (vitamin C) 1,000 mg tablet 1 tab PO DAILY Check with primary doctor 09/02/19 cholecalciferol (vitamin D3) 25 mcg (1,000 unit) tablet 1,000 unit PO DAILY 09/02/19 omega-3 fatty acids-fish oil 340 mg-1,000 mg capsule 1 ea PO DAILY 09/02/19 vits,calcium no.78-iron fumarate-folic acid 29 mg-1 mg tablet 1 tab PO DAILY 09/02/19 acetaminophen 500 mg tablet 1,000 mg (2 x 500 mg) PO Q8H PRN PRN Pain Score 1- 309/17/19 ibuprofen 600 mg tablet 600 mg PO Q6H PRN PRN Pain Score 1-07/1309/17/19 Hospital Course Operations section (with tubal) Summary of Care Provided Minutes Spent on Discharge: 20 Hospital Course: Presented with SROM and face presentation. Mentum posterior. PRimary c/s with tubal. Uncomplicated . Breast feeding. Physical Exam Const alert General Appearance: cooperative GI GI Narrative: soft, moderate distention, fundus firm, appropriately tender. Abdominal bandage clean dry and intact Extremity General Extremity: edema Weight / BMI Weight Weight: 86.636 kg Body Mass Index (BMI) 30.8 ABG / Lab / Microbiology Data 05/02/24 06:10 D/C Instructions Discharge Diet: No restrictions May resume sexual activity in: 4-6 weeks Lifting Restrictions: 20 pounds Additional Activity Instructions: Nothing in the vagina for 4-6 weeks. You may return to work/school in 6 weeks. Call your doctor if your incision/area has: Continuous Slow Oozing, Sudden Increased Bleeding, Increased Pain/ Swelling, Increased Redness and Foul Smelling Discharge Call your doctor if you observe: Fever of 101 or Higher and Using more than 1 pad per hour (for 2 hours) Suture Line Care: Avoid Pulling/Pushing and Avoid Pinching/Bending Cleanse incision/area with: Keep Dressing Clean & Dry DC O2, CPAP, BIPAP Needs Home O2 Discharge instructions: No Please Follow Up With: Kisha Hay MD When: Call to make an appointment for an incision check in 1-2 [phone]. You will need a post check in 6 weeks. Meaningful Use Info Meaningful Use Meaningful Use Diagnoses (Choose all that apply): None applicable Ischemic Stroke Statin Dosing Therapy Reference: STATIN DOSE THERAPY REFERENCE: * Patients > 75 years receive moderate or high dose statin therapy. * Patients 75 years or YOUNGER should receive HIGH intensity statin dose unless contraindicated. You will be required to document reason for non-treatment if statin daily dose does not meet guidelines. HIGH DOSE STATIN THERAPY DAILY Atorvastatin > than or = to 40 mg Rosuvastatin > than or = to 20 mg Amlodipine + Atorvastatin > than or = to 2.5/40 mg Ezetimibe + Simvastatin 10/80 mg Simvastatin 80mg Discharge Plan Admission Admit Date/Time: 05/01/24 15:07 Primary Reason for Your Visit: delivery Attending Provider: Jhoana Gonzalez Primary Care Provider: Care Physician,Ling Primary Discharge Orders/Prescriptions Prescriptions: Continued acetaminophen 500 MG tablet 1,000 mg PO Q8H PRN PRN (Reason: Pain Score 1-3/10) 0RF ibuprofen 600 MG tablet 600 mg PO Q6H PRN PRN (Reason: Pain Score 1-3/10) 0RF ascorbic acid (vitamin C) 1,000 MG tablet 1 tab PO DAILY cholecalciferol (vitamin D3) 1,000 UNIT tablet 1,000 unit PO DAILY omega-3 fatty acids-fish oil 1 EACH capsule 1 ea PO DAILY vit,[id number] 1 TABLET tablet 1 tab PO DAILY Discontinued aspirin 81 mg tablet,delayed release (DR/EC) 81 mg PO DAILY Referrals / Follow Up: Care Physician,No Primary [Primary Care Provider] - Disposition Disposition (needs filled in before D/C Order can be placed): Home, Self Care
[2024-05-03 09:00] VITALS: BP 125/76; RESP 16; TEMP 36.4
== END 2024-05-03 10:20 | disposition home or self-care (01) | DRG 539 ==
PROVIDERS: Admitting Provider Obstetrics & Gynecology; Referring Provider Obstetrics & Gynecology; Visit Provider Obstetrics & Gynecology
DX: O32.3XX0 Maternal care for face, brow and chin presentation, not applicable or unspecified (principal); Z30.2 Encounter for sterilization; Z37.0 Single live birth; Z3A.40 40 weeks gestation of pregnancy; Z79.82 Long term (current) use of aspirin
CPT/HCPCS: 59025; 59050; 85025; 85027; 86780; 86850; 86900; 86901; 88302; 99221; A4216; G0378; J2405

== ENCOUNTER 2024-05-08 18:30 | Observation (INO) | payer MEDICAID, SELFPAY ==
[2024-05-08] VITALS (34 sets, daily range): BP systolic 142–158; BP diastolic 67–91; PULSE 39–51; O2SAT 97–99
--- NOTE | 2024-05-08 17:45 | EKG12_ITS ---
Test Reason : BRADYCARDIA Blood Pressure : */* mmHG Vent. Rate : 48 BPM Atrial Rate : 48 BPM P-R Int : 130 ms QRS Dur : 68 ms QT Int : 438 ms P-R-T Axes : 25 21 34 degrees QTcB Int : 391 ms Sinus bradycardia Low voltage QRS Borderline ECG No previous ECGs available Confirmed by DIMPLE CROUCH, RAHUL ([id number]), editorial cartoonist SAUD SMITH ([id number]) on 05/11/2024 10:00:37 AM Referred By: Kisha Hay Confirmed By: RAHUL MUSA MD
--- NOTE | 2024-05-08 18:00 | HP.PCM_ITS ---
History and Physical Date of Admission: 05/08/24 Loida Rios is a 38 year old female who presents for problem visit for c/o edema, weights more now than when delivered. No h/o high BP w/ this delivery or other deliveries. No HANLEY. Tylenol and ibuprofen prn pain. Denies fevers. BM were slow but moving through now. Had c/s for face presentation w/ tubal sterilization Has BP cuff at home. Running 154/94 at home. 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 PAST MEDICAL HISTORY PAST MEDICAL HISTORY Diagnosis Date ? IBS (irritable bowel syndrome) ? infertility ? Rh incompatibility is also rh incompatibility PAST SURGICAL HISTORY PAST SURGICAL HISTORY Procedure Laterality Date ? APPENDECTOMY 2003 ? DELIVERY ONLY Bilateral 05/01/2024 bilateral salpingectomy FAMILY HISTORY FAMILY HISTORY Problem Relation Age of Onset ? other (Neuropathy) Mother ? other (IBS) Father ? No Known Problems Sister ? Asthma Brother ? Thyroid Maternal Grandmother ? Heart Maternal Grandmother ? Hypertension Maternal Grandmother ? Alzheimer's Disease Maternal Grandfather ? No Known Problems Paternal Grandmother SOCIAL HISTORY Social History Tobacco Use ? Smoking status: Never ? Smokeless tobacco: Never Vaping Use ? Vaping status: Never Used Substance Use Topics ? Alcohol use: No ? Drug use: No CURRENT MEDICATIONS Current Outpatient Medications Medication Sig ? aspirin, enteric coated (ASPIRIN, ENTERIC COATED) 81 mg EC tablet Take 1 tablet by mouth once daily. ? docosahexaenoic acid (DHA ORAL) Take by mouth. (Patient not taking: Reported on 05/08/2024) ? 21/iron fu/folic acid ( COMPLETE ORAL) Take by mouth. (Patient not taking: Reported on 05/08/2024) No current facility-administered medications for this visit. Allergies As of Date: 05/08/2024 (No Known Allergies) Fully Assessed 05/08/2024 REVIEW OF SYSTEMS Abdomen: No bloating, early satiety, indigestion, or increased flatulence. No abdominal pain, nausea, vomiting, diarrhea, or constipation. Bladder: No dysuria, gross hematuria, urinary frequency, urinary urgency, or incontinence. Breast: No breast lumps, nipple d/c, overlying skin changes, redness or skin retraction. Expanded ROS: RESPIRATORY: Negative for cough, hemoptysis, wheezing, COPD, dyspnea or shortness of breath CARDIOVASCULAR: neg for SOB or cough, Positive for significant edema Allergies and current medication updated:Yes SENSITIVE EXAM: Sensitive exam not performed. EXAM: BP 147/89 Pulse 51 Wt 192 lb (87.1kg) LMP 07/23/2023 GENERAL: pleasant, female in no apparent distress HEENT: Normocephalic, atraumatic, mucus membranes moist, and no lesions NECK: Supple, full range of motion, no adenopathy, and thyroid normal DERMATOLOGY: Normal, without lesions, non-icteric, and non-hirsute BABDOMEN: soft, non-tender, no masses, and incision clean, dry and intact EXTREMITIES: 2+ pitting LE edema, 2+ Dtrs, no clonus, no erythema, symmetrical, neg. watson's sign Assessment & Plan Assessment/Plan (1) S/P : (2) Preeclampsia in period: PLAN: Elevated BP, check preeclampsia labs. Start hydralazine for HTN as lower HR. ECG done, formal read pending but appears sinus bradycardia. No severe symptoms at this time. if severe criteria will initiate magnesium prophylaxis. Likely monitor overnight to ensure BP stabilized on PO meds and d/c home
[2024-05-08 18:50] LABS: Hematocrit 31.4 % (37-47); Hemoglobin 10.4 g/dL (12.0-15.0); Mean Corp Hgb Conc 33.1 g/dL (32-36); Mean Corpuscular Hgb 30.4 pg (27.0-32.0); Mean Corpuscular Volume 91.8 fL (81-99); Mean Platelet Vol. 10.9 fl (6.2-12.0); Platelet Count 236 K/mm3 (150-450); RBC Distribution Width CV 12.7 % (11.6-14.6); RBC Distribution Width SD 42.7 fl (35.1-43.9); Red Blood Count 3.42 M/mm3 (4.2-5.4); White Blood Count 8.4 K/mm3 (4.4-11.0)
[2024-05-08] MEDS: Acetaminophen 500 MG Tablet 1000 MG PO (18:53)
[2024-05-08] MEDS: Ibuprofen 600 MG Tablet PO (18:54)
[2024-05-08 19:13] LABS: AST(SGOT) 72 U/L (15-37); Alanine Aminotransfer ALT/SGPT 92 U/L (13-56); Creatinine, Serum 0.59 mg/dL (0.55-1.02); EST Glomerular Filtration Rate 122 mL/min (>60); Est Glom Filt Rate - Afr Amer 148 mL/min (>60); Uric Acid 5.2 mg/dL (2.6-6.0)
[2024-05-08] MEDS: hydrALAZINE 10 MG Tablet PO (19:51)
[2024-05-09] VITALS (9 sets, daily range): BP systolic 117–142; BP diastolic 77–90; PULSE 42–50; RESP 16; TEMP 36.3–37.1; O2SAT 97–100
[2024-05-09] MEDS: hydrALAZINE 10 MG Tablet PO ×2 (04:06→12:11)
[2024-05-09] MEDS: Acetaminophen 500 MG Tablet 1000 MG PO (04:10)
[2024-05-09] MEDS: Ibuprofen 600 MG Tablet PO ×2 (04:10→12:11)
[2024-05-09 07:03] LABS: Hematocrit 30.9 % (37-47); Hemoglobin 10.2 g/dL (12.0-15.0); Mean Corpuscular Hgb 30.3 pg (27.0-32.0); Mean Corpuscular Volume 91.7 fL (81-99); Platelet Count 228 K/mm3 (150-450); RBC Distribution Width CV 12.6 % (11.6-14.6); RBC Distribution Width SD 41.9 fl (35.1-43.9); Red Blood Count 3.37 M/mm3 (4.2-5.4); White Blood Count 7.7 K/mm3 (4.4-11.0)
[2024-05-09 07:25] LABS: ALB/GLOB Ratio 0.7 RATIO (0.9-2.4); AST(SGOT) 50 U/L (15-37); Alanine Aminotransfer ALT/SGPT 83 U/L (13-56); Albumin, Serum 2.4 g/dL (3.2-5.0); Alkaline Phosphatase 174 U/L (45-117); Anion Gap 6 (5-15); BUN 16 mg/dL (7-18); BUN/Creat Ratio 25.7 RATIO (10-20); Calcium,Total 8.4 mg/dL (8.5-10.1); Chloride 111 mmol/L (98-107); Creatinine, Serum 0.62 mg/dL (0.55-1.02); EST Glomerular Filtration Rate 114 mL/min (>60); Est Glom Filt Rate - Afr Amer 139 mL/min (>60); Globulin 3.5 g/dL (2.2-4.2); Glucose 88 mg/dL (74-106); Potassium 3.9 mmol/L (3.5-5.1); Protein, Total 5.9 g/dL (6.4-8.2); Sodium Level 140 mmol/L (136-145)
--- NOTE | 2024-05-09 08:38 | PCM.PN.BLA ---
Progress Note Pain well controlled, average lochia. Denies HANLEY, SOB, CP or epigastric pain. Asya. regular diet. doing well Physical Exam Narrative awake, alert NAD skin- warm dry and intact ext 2+ edema, 2+ DTRs, no clonus Assessment & Plan Assessment/Plan (1) Preeclampsia in period: PLAN: no severe symptoms, labs stable. Stil signif. edema. Will give IV lasix x1 and cont. Hydralazine. Counseled on BP goals. Has f/u scheduled in office next week. Cont. po pain meds for pain control. (2) S/P :
[2024-05-09] MEDS: Furosemide 20 MG/2 ML VIAL IV (08:41)
--- NOTE | 2024-05-09 14:35 | NURSING ---
Call placed to Dr. Hay to update on patient's blood pressures. Per Dr. Hay, ok'd to go home. This RN went over discharge instructions, removed patient's IV and removed baby's security tag. Patient, support person and baby discharged off the unit in satisfactory condition.
== END 2024-05-09 14:52 | disposition home or self-care (01) ==
LOC: WPOUT 18:52 → WP 18:52
PROVIDERS: Admitting Provider Obstetrics & Gynecology; Referring Provider Obstetrics & Gynecology; Visit Provider Obstetrics & Gynecology
DX: O14.95 Unspecified pre-eclampsia, complicating the puerperium (principal); Z79.82 Long term (current) use of aspirin
CPT/HCPCS: 36415; 80053; 82565; 84450; 84460; 84550; 85027; 93005; 96374; 99221; G0378; J1940

== ENCOUNTER 2024-05-13 15:54 | Inpatient (IN) | payer MEDICAID, SELFPAY ==
[2024-05-13] VITALS (21 sets, daily range): BP systolic 103–165; BP diastolic 61–95; PULSE 68–93; RESP 16; TEMP 35.7–36.4; O2SAT 97–100; BMI 30.1
[2024-05-13] MEDS: NIFEdipine 10 MG Capsule PO (14:22)
[2024-05-13 14:38] LABS: Bacteria 0 SEEN /hpf (None Seen); Mucous, Urine 0 SEEN /hpf (<or=2+)
[2024-05-13] MEDS: NIFEdipine 10 MG Capsule 20 MG PO (14:47)
[2024-05-13 14:51] LABS: Protein, Urine (Random) 6.2 mg/dL (<11.9); Protein:Creat Ratio 443 mg/g CRE (0-200)
[2024-05-13 14:52] LABS: Color, Urine Straw (Yellow); Glucose, Dipstick Normal (Normal); Ketone-Dipstick Negative (Negative); Leukocyte Esterase-Dipstick 25 /ul (Negative); Nitrite-Dipstick Negative (Negative); Occult Blood-Urine 150 /ul (Negative); Protein-Dipstick Negative (Negative); Urine Bilirubin Dipstick Negative (Negative); Urine Clarity Clear (Clear); Urine Urobilinogen Normal (Normal)
[2024-05-13] MEDS: Magnesium Sulfate 4gm/100mL 4 GM/100 ML IV.SOLN. IV (14:57)
[2024-05-13 15:03] LABS: Red Blood Cells-Urine 0-5 SEEN /hpf (0-5); Squamous Epithelial Cells - UA 0-5 SEEN /hpf (5-10); White Blood Cells 0-5 SEEN /hpf (0-5)
[2024-05-13 15:07] LABS: Hematocrit 32.9 % (37-47); Hemoglobin 11.1 g/dL (12.0-15.0); Mean Corp Hgb Conc 33.7 g/dL (32-36); Mean Corpuscular Hgb 30.2 pg (27.0-32.0); Mean Corpuscular Volume 89.4 fL (81-99); Mean Platelet Vol. 10.8 fl (6.2-12.0); Platelet Count 214 K/mm3 (150-450); RBC Distribution Width CV 12.5 % (11.6-14.6); RBC Distribution Width SD 41.1 fl (35.1-43.9); Red Blood Count 3.68 M/mm3 (4.2-5.4)
[2024-05-13] MEDS: Magnesium Sulfate 20 GM/500 ML BAG IV (15:15)
[2024-05-13 15:24] LABS: AST(SGOT) 59 U/L (15-37); Alanine Aminotransfer ALT/SGPT 108 U/L (13-56); Creatinine, Serum 0.67 mg/dL (0.55-1.02); EST Glomerular Filtration Rate 105 mL/min (>60); Est Glom Filt Rate - Afr Amer 126 mL/min (>60); Estimated Creatinine Clearance 126.08 ml/min; Uric Acid 5.2 mg/dL (2.6-6.0)
--- NOTE | 2024-05-13 17:39 | PCM.HP.OB ---
HPI - General General Date of Admission: 05/13/24 Date of Service: 05/13/24 Chief Complaint: HANLEY and HTN HPI Narrative JANET COUGHLIN, is a 38 F who presents with HANLEY, HTN and vision changes. 13 days from primary c/s for face presentation. Readmit 1 week with HTN and edema. Given Lasix and Hydralazine. Multiple severe range blood pressures. LFTs elevated urine protein elevated however is still bleeding . Started on magnesium and Procardia protocol PFSH PFSH Home Medications ?Medication ?Instructions ?Recorded ?Last Taken ?Type ascorbic acid (vitamin C) 1,000 mg 1 tab PO DAILY Check with primary 09/02/19 09/15/19 08:00 History tablet doctor cholecalciferol (vitamin D3) 25 1,000 unit PO DAILY 09/02/19 09/15/19 08:00 History mcg (1,000 unit) tablet omega-3 fatty acids-fish oil 340 1 ea PO DAILY 09/02/19 05/01/24 History mg-1,000 mg capsule vits,calcium no.78-iron 1 tab PO DAILY 09/02/19 05/01/24 History fumarate-folic acid 29 mg-1 mg tablet acetaminophen 500 mg tablet 1,000 mg (2 x 500 mg) PO Q8H PRN 09/17/19 05/08/24 14:30 Rx PRN Pain Score 1-3/10 ibuprofen 600 mg tablet 600 mg PO Q6H PRN PRN Pain Score 09/17/19 05/08/24 11:00 Rx 1-3/10 furosemide 20 mg tablet (Lasix) 20 mg PO DAILY 2 days #2 tabs 05/09/24 Unknown Rx hydralazine 10 mg tablet 10 mg PO TID #90 tabs 05/09/24 Unknown Rx Allergy/AdvReac Type Severity Reaction Status Date / Time No Known Allergies Allergy Verified 05/08/24 18:21 Surgical History History of surgery Social History Smoking Status: Never smoker History 5 Elective abortions Hx Para 3 Spontaneous abortions Hx # Term Pregnancies Ectopic pregnancies Hx # Pregnancies Multiple births # of living children ROS Eyes Eyes: Reports change in vision ENT HEENT: Reports headache(s) Cardiovascular Cardiovascular: Denies chest pain or dyspnea Respiratory/Chest Respiratory/Chest: Denies shortness of breath with exertion Gastrointestinal Gastrointestinal: Denies abdominal pain Neurologic Neurologic: Reports headache(s); Denies confusion Psychiatric Psychiatric: Denies depression Vital Signs Vital Signs Vital Signs: 05/13/24 14:00 05/13/24 14:42 05/13/24 15:03 Temperature Temperature Source Pulse Rate Respiratory Rate Respiratory Effort Normal Non-Labored Respiratory Depth Normal Respiratory Pattern Normal Blood Pressure 165/95 H 161/92 H 161/90 H Blood Pressure Mean 118 115 113 Blood Pressure Source Monitor Monitor Monitor Blood Pressure Position Semi-Fowlers Semi-Fowlers Sitting Blood Pressure Location Left Arm Left Arm Left Arm Pulse Ox Oxygen Delivery Method 05/13/24 15:03 05/13/24 15:10 05/13/24 15:17 Temperature Temperature Source Temporal Temporal Pulse Rate Respiratory Rate Respiratory Effort Respiratory Depth Respiratory Pattern Blood Pressure 114/75 Blood Pressure Mean 88 Blood Pressure Source Monitor Blood Pressure Position Semi-Fowlers Blood Pressure Location Left Arm Pulse Ox Oxygen Delivery Method 05/13/24 15:33 05/13/24 15:33 05/13/24 16:03 Temperature 96.3 F L Temperature Source Temporal Temporal Pulse Rate 87 89 Respiratory Rate 16 16 Respiratory Effort Normal Non-Labored Respiratory Depth Respiratory Pattern Blood Pressure 104/71 105/71 Blood Pressure Mean 82 82 Blood Pressure Source Monitor Monitor Blood Pressure Position Semi-Fowlers Semi-Fowlers Blood Pressure Location Left Arm Left Arm Pulse Ox 100 Oxygen Delivery Method Room Air 05/13/24 16:05 05/13/24 16:09 05/13/24 16:17 Temperature 96.5 F L Temperature Source Temporal Pulse Rate 93 Respiratory Rate 16 Respiratory Effort Normal Non-Labored Respiratory Depth Respiratory Pattern Blood Pressure 105/71 104/61 103/68 Blood Pressure Mean 82 75 79 Blood Pressure Source Monitor Monitor Monitor Blood Pressure Position Semi-Fowlers Semi-Fowlers Sitting Blood Pressure Location Left Arm Left Arm Left Arm Pulse Ox 99 Oxygen Delivery Method Room Air 05/13/24 16:17 05/13/24 16:30 05/13/24 16:45 Temperature Temperature Source Temporal Pulse Rate 85 89 Respiratory Rate 16 16 Respiratory Effort Respiratory Depth Respiratory Pattern Blood Pressure 106/76 111/74 Blood Pressure Mean 86 86 Blood Pressure Source Monitor Blood Pressure Position Semi-Fowlers Blood Pressure Location Left Arm Pulse Ox 99 99 Oxygen Delivery Method Room Air Room Air 05/13/24 17:03 05/13/24 17:03 05/13/24 17:15 Temperature 96.6 F L Temperature Source Temporal Temporal Pulse Rate 68 Respiratory Rate 16 Respiratory Effort Normal Non-Labored Respiratory Depth Respiratory Pattern Blood Pressure 110/74 106/72 Blood Pressure Mean 86 83 Blood Pressure Source Monitor Monitor Blood Pressure Position Semi-Fowlers Semi-Fowlers Blood Pressure Location Left Arm Left Arm Pulse Ox 98 Oxygen Delivery Method Room Air Weight Weight: 84.731 kg Body Mass Index (BMI) 30.1 Physical Exam Const alert and oriented x3 General Appearance: cooperative and comfortable; Negative for in distress HEENT normocephalic Head and Scalp: atraumatic Eyes PERRL and EOMs intact bilaterally Resp normal respiratory effort Cardio regular rate Extremity full ROM Neuro moves all extremities Labs Labs Labs: Blood Type O NEGATIVE Antibody Screen NEGATIVE Hct 32.9 % (37-47) L Hgb 11.1 g/dL (12.0-15.0) L Syphilis Total Ab Non-reactive Rhogam given: No Assessment & Plan (1) Preeclampsia in period: PLAN: Plan Magnesium Therapy Procardia Expect to stay 24 hours after mag
[2024-05-13] MEDS: Ibuprofen 600 MG Tablet PO (18:45)
[2024-05-13] MEDS: Acetaminophen 500 MG Tablet 1000 MG PO (21:07)
[2024-05-14] VITALS (18 sets, daily range): BP systolic 100–126; BP diastolic 66–91; PULSE 59–88; RESP 16; TEMP 36.1–36.8; O2SAT 96–99
[2024-05-14] MEDS: Ibuprofen 600 MG Tablet PO (01:04)
[2024-05-14] MEDS: Magnesium Sulfate 20 GM/500 ML BAG IV ×2 (01:05→11:21)
[2024-05-14] MEDS: Acetaminophen 500 MG Tablet 1000 MG PO (06:03)
[2024-05-14] MEDS: NIFEdipine 30 MG Tablet PO (14:22)
[2024-05-14] MEDS: SimETHICONE 80 MG Chewable Tablet PO (17:08)
[2024-05-14] MEDS: Ondansetron 4 MG/2 ML Vial IV (17:09)
--- NOTE | 2024-05-14 17:17 | PCM.PN.OB ---
Subjective Subjective Denies headaches or blurry vision. Her only concern is an IBS flare that is causing abdominal discomfort. Objective Data Objective Data Vital Signs: Vital Signs Temp Pulse Resp BP Pulse Ox O2 Del Method 97.5 F L 78 16 100/67 98 Room Air 05/14/24 14:10 05/14/24 14:58 05/14/24 14:58 05/14/24 17:13 05/14/24 14:58 05/14/24 14:58 Oxygen Delivery Method Room Air Weight: 186 lb 12.8 oz Body Mass Index (BMI) 30.1 Intake & Output: Intake and Output for Last 24 Hours 05/12/24 05/13/24 05/14/24 23:59 23:59 23:59 Intake Total 725 / 775 2071.67 / 2071.67 Output Total 7500 / 7500 1999 / 1999 Balance -6775 / -6725 71.67 / 71.67 Lab / Micro Data 05/13/24 14:45 05/13/24 14:45 Physical Exam Const alert, oriented x3 and no apparent distress Constitutional Narrative: Patient sitting on toilet Assessment & Plan (1) Preeclampsia in period: COMMENT: HD#2 (2) S/P : PLAN: Plan Patient is s/p 24 hours magnesium sulfate. Continue procardia XL. IBS flare - pepcid and simethicone ordered.
[2024-05-14] MEDS: Famotidine 20 MG Tablet PO (17:36)
[2024-05-15] VITALS: BP 106/73; PULSE 66; RESP 16; TEMP 36.5; O2SAT 97
[2024-05-15 04:00] VITALS: BP 109/74; PULSE 65; RESP 15; TEMP 36.6; O2SAT 96
[2024-05-15 07:42] VITALS: BP 114/70; PULSE 61; RESP 16; TEMP 36.6; O2SAT 98
--- NOTE | 2024-05-15 08:37 | PCM.PROGNOTE ---
Subjective Subjective pt seen at bedside, doing well. pt reports no headache, no visual changes. feeling well today. Objective Data Objective Data Vital Signs: Vital Signs Temp Pulse Resp BP Pulse Ox O2 Del Method 98 F 61 16 114/70 98 Room Air 05/15/24 07:42 05/15/24 07:42 05/15/24 07:42 05/15/24 07:42 05/15/24 07:42 05/15/24 07:42 Oxygen Delivery Method Room Air Weight: 84.731 kg Body Mass Index (BMI) 30.1 Intake & Output: Intake and Output for Last 24 Hours 05/13/24 05/14/24 05/15/24 23:59 23:59 23:59 Intake Total 725 / 775 2245.84 / 2845.84 600 / 600 Output Total 7500 / 7500 1999 Balance -6775 / -6725 245.84 / 845.84 600 / 600 Lab / Micro Data 05/13/24 14:45 05/13/24 14:45 Physical Exam Const alert and oriented x3 General Appearance: cooperative HEENT normocephalic Neck General: normal visual inspection GI GI Narrative: Fundus firm Extremity normal to inspection and no calf tenderness Skin no rashes or lesions noted Neuro oriented x3 and CN's II-XII intact bilaterally Psych mental status grossly normal Assessment & Plan Assessment/Plan (1) S/P : (2) Preeclampsia in period: PLAN: Plan HD#3 readmit for Severe PRE Eclampsia s/p Magnesium 1) BP stable 2) continue procardia 30xl 3) resolution of AHNLEY 4) Dc home with follow up in office saturday05/18/24 for BP check. 5) instructions reviewed with patient time spent with patient on day of discharge was <30min
--- NOTE | 2024-05-15 08:41 | DCINST_ITS ---
Discharge Instructions Diet Discharge Diet: No restrictions DC O2, CPAP, BIPAP needs Home O2 Discharge instructions: No Dressing / Incision May resume sexual activity in: 6-8 weeks Lifting Restrictions: 25 Dressing / Incision Call your doctor if your incision/area has: Continuous Slow Oozing, Sudden Increased Bleeding, Increased Pain/ Swelling, Increased Redness, Foul Smelling Discharge and Swelling at the incision site Call your doctor if you observe: Fever of 101 or Higher, Inability to urinate, Using more than 1 pad per hour and Uncontrolled pain Additional Dressing/Incision Instructions:: remove dressing at 7 days post op- if it becomes saturated prior to that time you may remove it. Let soap and water run over incision sites and dab dry. keep incision clean and dry. Follow Up Care Please Follow Up With: Aaliyah Silverio MD When: 1-2 weeks post of incision check and again at 6 weeks post . [phone] Test Results: Test results from this visit will be discussed in further detail at your follow- up appointment, if applicable. Discharge Plan Admission Admit Date/Time: 05/13/24 15:54 Attending Provider: Jhoana Gonzalez Primary Care Provider: Canelo PhysicianLing Primary Discharge Orders/Prescriptions Prescriptions: New nifedipine 30 mg Tablet Extended Release 24hr 30 mg PO DAILY Qty: 30 1RF Continued acetaminophen 500 MG tablet 1,000 mg PO Q8H PRN PRN (Reason: Pain Score 1-3/10) 0RF ibuprofen 600 MG tablet 600 mg PO Q6H PRN PRN (Reason: Pain Score 1-3/10) 0RF ascorbic acid (vitamin C) 1,000 MG tablet 1 tab PO DAILY cholecalciferol (vitamin D3) 1,000 UNIT tablet 1,000 unit PO DAILY omega-3 fatty acids-fish oil 1 EACH capsule 1 ea PO DAILY vit,[id number] 1 TABLET tablet 1 tab PO DAILY Discontinued hydralazine 10 mg tablet 10 mg PO TID Qty: 90 0RF furosemide [Lasix] 20 mg tablet 20 mg PO DAILY 2 Days Qty: 2 0RF Referrals / Follow Up: Care PhysicianNo Primary [Primary Care Provider] - Disposition Disposition (needs filled in before D/C Order can be placed): Home, Self Care
--- NOTE | 2024-05-15 08:48 | PCM.DC.BLA ---
Discharge Summary Date of Admission: 05/13/24 Date of Discharge: 05/15/24 Summary: pt s/p primary cs for face presentation on 05/01/25, was readmitted to [facility] with preeclampsia with severe features on 05/13/24 , received magnesium sulfate x 24hrs and required acute treatment of severe range blood pressures. pt was placed on procardia 30xl daily for maintenance therapy. pt discharged home on HD#3 05/15/24 in stable condition. pt to follow up in the office 05/18/24 for BP check. Meaningful Use Info Meaningful Use Meaningful Use Diagnoses (Choose all that apply): None applicable Ischemic Stroke Statin Dosing Therapy Reference: STATIN DOSE THERAPY REFERENCE: * Patients > 75 years receive moderate or high dose statin therapy. * Patients 75 years or YOUNGER should receive HIGH intensity statin dose unless contraindicated. You will be required to document reason for non-treatment if statin daily dose does not meet guidelines. HIGH DOSE STATIN THERAPY DAILY Atorvastatin > than or = to 40 mg Rosuvastatin > than or = to 20 mg Amlodipine + Atorvastatin > than or = to 2.5/40 mg Ezetimibe + Simvastatin 10/80 mg Simvastatin 80mg Discharge Plan Admission Admit Date/Time: 05/13/24 15:54 Attending Provider: Jhoana Gonzalez Primary Care Provider: Care Physician,Ling Primary Discharge Orders/Prescriptions Prescriptions: New nifedipine 30 mg Tablet Extended Release 24hr 30 mg PO DAILY Qty: 30 1RF Continued acetaminophen 500 MG tablet 1,000 mg PO Q8H PRN PRN (Reason: Pain Score 1-3/10) 0RF ibuprofen 600 MG tablet 600 mg PO Q6H PRN PRN (Reason: Pain Score 1-3/10) 0RF ascorbic acid (vitamin C) 1,000 MG tablet 1 tab PO DAILY cholecalciferol (vitamin D3) 1,000 UNIT tablet 1,000 unit PO DAILY omega-3 fatty acids-fish oil 1 EACH capsule 1 ea PO DAILY vit,[id number] 1 TABLET tablet 1 tab PO DAILY Discontinued hydralazine 10 mg tablet 10 mg PO TID Qty: 90 0RF furosemide [Lasix] 20 mg tablet 20 mg PO DAILY 2 Days Qty: 2 0RF Referrals / Follow Up: Care Physician,No Primary [Primary Care Provider] - Disposition Disposition (needs filled in before D/C Order can be placed): Home, Self Care
[2024-05-15] MEDS: SimETHICONE 80 MG Chewable Tablet PO ×2 (08:50→12:55)
[2024-05-15 09:57] VITALS: BP 104/66; PULSE 71; RESP 16; O2SAT 97
[2024-05-15] MEDS: Famotidine 20 MG Tablet PO (09:59)
[2024-05-15 13:30] VITALS: BP 119/73; PULSE 63; RESP 16; TEMP 36.4; O2SAT 97
--- NOTE | 2024-05-15 15:10 | VDLE_ITS ---
Reason For Study: PAIN RIGHT LEFT GSV is normal. CFV is compressible, spontaneous, phasic, CFV is compressible, spontaneous, phasic, competent, and demonstrates normal competent and demonstrates normal augmentation. augmentation. FV is compressible, spontaneous, phasic, competent and demonstrates normal augmentation. POP V is compressible, spontaneous, phasic, competent and demonstrates normal augmentation. T/P Trunk is compressible. PTV is compressible. RT PerV is compressible. Procedure This is a venous duplex using B-mode, color flow and spectral Doppler. Exam performed portable in patient room. VL/Venous Duplex US, Unilateral Interpretation Summary Deep veins of the right lower extremity are patent and compressible segmentally . There is no evidence of right lower extremity deep vein thrombosis. The right great saphen[place] us vein appears patent and compressible segmentally. Ordering Physician: Kisha Hay Referring Physician: Jhoana Gonzalez Performed By: Priyanka Amezcua RVT and Student
[2024-05-15 16:28] VITALS: RESP 16
--- NOTE | 2024-05-18 14:46 | NURSING ---
F/up phone call performed since pt. dc'd from unit for readmit Pre-E. Feels like she is recovering good. Reports BPs have been good, only one elevated, took Procardia. Mostly running 104-114 systolic. Denies questions or concerns.
== END 2024-05-15 17:20 | disposition home or self-care (01) | DRG 561 ==
LOC: WPOUT 16:01 → WP 16:01
PROVIDERS: Admitting Provider Obstetrics & Gynecology; Referring Provider Obstetrics & Gynecology; Visit Provider Obstetrics & Gynecology
DX: O14.15 Severe pre-eclampsia, complicating the puerperium (principal); N96 Recurrent pregnancy loss
CPT/HCPCS: 81001; 82565; 82570; 84156; 84450; 84460; 84550; 85027; 93971; J2405